=== PATIENT | female | born 1995 | race Caucasian/White ===

== ENCOUNTER 2016-08-05 03:52 | Emergency (ER) | payer BC, OTHER ==
[~2016-08-05] VITALS: Ht 157.5 cm; Wt 56.8 kg
[2016-08-05 03:56] VITALS: BP 136/97; TEMP 98.7
[2016-08-05] MEDS ORDERED: NORGESTIMATE AN1 TAB PO (03:58)
[2016-08-05] MEDS ORDERED: ZOFRAN 4MG T4 MG/TAB PO (04:44)
[2016-08-05 05:10] VITALS: PULSE 87
== END 2016-08-05 05:10 | disposition home or self-care (01) ==
LOC: COL.ER 03:52
DX: S09.90XA Unspecified injury of head, initial encounter (principal); W22.8XXA Striking against or struck by other objects, initial encounter; R11.2 Nausea with vomiting, unspecified